=== PATIENT | female | born 1960 | race Caucasian/White ===

== ENCOUNTER 2020-03-24 12:56 | Outpatient (CLI) | payer BC ==
--- NOTE | 2020-03-24 14:00 | RAD ---
TWO VIEW CHEST: 03/24/20 HISTORY: Dyspnea. Lung espinoza appear clear. Heart and mediastinum appear normal. Osseous structures unremarkable. IMPRESSION: No acute findings. POS: [id number]
== END 2020-03-24 12:57 | disposition home or self-care (01) ==
LOC: BICRAD 12:56
PROVIDERS: ATTEND Internal Medicine Pulmonary Disease
DX: R06.00 Dyspnea, unspecified (principal)
CPT/HCPCS: 71046

== ENCOUNTER 2023-05-01 10:18 | Outpatient (CLI) | payer BC | END 2023-05-01 10:19 | disposition home or self-care (01) | LOC: EKG 10:18 | PROVIDERS: ATTEND Student in an Organized Health Care Education/Training Program | DX: I20.9 Angina pectoris, unspecified (principal) | CPT/HCPCS: 93005; 93010; 93017 ==